=== PATIENT | male | born 1990 | race Caucasian/White ===

== ENCOUNTER 2019-08-16 18:55 | Emergency (ER) | payer OTHER ==
[~2019-08-16] VITALS: Ht 177 cm; Wt 79.0 kg
[2019-08-16] MEDS ORDERED: TETANUS,DIPTH,PERTUSS P/F (BOOSTRIX) 0.5 ML VIAL IM ONE (19:15)
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
[2019-08-16] MEDS ORDERED: CEFP500T4 PO (20:24)
[2019-08-16] MEDS ORDERED: TRAM-42 PO (20:24)
[2019-08-16 20:34] VITALS: BP 136/80
== END 2019-08-16 20:35 | disposition home or self-care (01) ==
LOC: EDUNIT# 18:55 → ER 18:57
DX: S06.0X9A Concussion with loss of consciousness of unspecified duration, initial encounter (principal); S00.83XA Contusion of other part of head, initial encounter; S02.2XXA Fracture of nasal bones, initial encounter for closed fracture; S16.1XXA Strain of muscle, fascia and tendon at neck level, initial encounter; R40.2142 Coma scale, eyes open, spontaneous, at arrival to emergency department; R40.2252 Coma scale, best verbal response, oriented, at arrival to emergency department; R40.2362 Coma scale, best motor response, obeys commands, at arrival to emergency department; Z23 Encounter for immunization; Z88.0 Allergy status to penicillin; Y04.0XXA Assault by unarmed brawl or fight, initial encounter
CPT/HCPCS: 70450; 70486; 72125; 90715